=== PATIENT | female | born 1955 | race Caucasian/White ===

== ENCOUNTER 2021-02-07 10:58 | Emergency (ER) | payer OTHER, SELFPAY ==
--- NOTE | ~2021-02-07 | XR_ITS ---
EXAMINATION: XR shoulder RT min 2V DATE: 02/07/2021 11:29 INDICATION: Right shoulder pain. TECHNIQUE: 4 views of right shoulder were obtained. COMPARISON: None. FINDINGS: Bone alignment is normal. No fracture. There is mild osteoarthritis of glenohumeral joint a nd acromioclavicular joint. Osteopenia is noted. IMPRESSION: 1. Mild polyarticular osteoarthritis. Reviewed, dictated and finalized at location A.
[2021-02-07 11:07] VITALS: BP 140/71; PULSE 75; RESP 16; TEMP 36.7; O2SAT 98
--- NOTE | 2021-02-07 11:35 | ED.UPPEXIN ---
HPI - Extremity Injury (Upper) General Chief Complaint: Extremity Injury, Upper Stated Complaint: right shoulder injury Time Seen by Provider: 02/07/21 11:13 Source: patient and RN notes reviewed Mode of arrival: ambulatory Limitations: no limitations History of Present Illness HPI narrative: Patient presents today complaining of right shoulder injury. States she injured her shoulder at work on January 15 and moving heavy boxes and tables. States she does not recall an acute pain at the time, but woke up the next morning unable to move her shoulder around. She describes the pain as a severe ache and currently rates her pain 7/10. States the pain is somewhat improved at this time but not back to 100%. She has not tried any [id number] interventions prior to arrival. History of rotator cuff tear and frozen shoulder in the currently affected shoulder denies numbness or tingling in the arm or hand. She just reported the injury to her job at [employer] and was told to come in for evaluation. MD complaint: injury to: right and shoulder Related Data Home Medications Medication Instructions Recorded Confirmed No Home Medications 02/07/21 02/07/21 Allergies Allergy/AdvReac Type Severity Reaction Status Date / Time No Known Allergies Allergy Mild Unverified 07/19/05 10:33 Review of Systems Review of Systems: Narrative: CONSTITUTIONAL: Denies body aches, fever, chills, or sweats. EYES: Denies visual changes, redness, or discharge. ENT: Denies rhinorrhea, congestion, sore throat, or otalgia. CARDIOVASCULAR: Denies chest pain, palpitations, or edema. RESPIRATORY: Denies cough or dyspnea. GASTROINTESTINAL: Denies abdominal pain, nausea, vomiting, or diarrhea. GENITOURINARY: Denies dysuria or hematuria. SKIN: Denies rash, itching, or wounds. MUSCULOSKELETAL: Denies back pain, or myalgia. + Right shoulder injury NEUROLOGIC: Denies headache, numbness, tingling, or weakness. PSYCH: Denies depression or anxiety. [facility] Past Medical History Medical History (Updated 02/07/21 @ 12:11 by Ade Fiore, [employer], ) Frozen shoulder History of rotator cuff tear Interstitial cystitis Social History Social History Gender identity (if verbalized by the patient): Female Comments At time of signature, I have reviewed and agree with nursing past medical, surgical, social and family history unless otherwise noted. Please see nursing chart for further information. There is no relevant family history pertinent to the presenting complaint Exam Narrative: Exam Narrative: GENERAL: Well-appearing, well-nourished, and in no acute distress. HEAD: Normocephalic, atraumatic. EYES: EOMI. No redness or drainage. Conjunctivae normal. ENT: Mucous membranes pink and moist. NECK: Normal AROM. Supple. No lymphadenopathy. CHEST: No respiratory distress. EXTREMITIES: Right shoulder: Obvious surgical scars noted. Mild tenderness anteriorly and over surgical scar. No edema noted. No ecchymosis or erythema noted. PROM laterally is limited to 90 degrees before becomes painful. PROM anteriorly is limited to 135 degrees. Significant pain with internal and external rotation and states there is a catching sensation that is very painful with internal rotation that had to resolve itself. Distal sensation intact. Capillary refill normal. Radial pulse normal. SKIN: Warm, dry, no rash. Capillary refill normal. Normal skin turgor. NEURO: No focal deficits. Alert and oriented x3. Gait steady. PSYCH: Normal affect. No signs of depression or anxiety. Course Vital Signs Vital signs: Vital Signs Temperature 98.0 F 02/07/21 11:07 Pulse Rate 75 02/07/21 11:07 Respiratory Rate 16 02/07/21 11:07 Blood Pressure 140/71 02/07/21 11:07 Pulse Oximetry 98 02/07/21 11:07 Temperature 98.0 F 02/07/21 11:07 Pulse Rate 75 02/07/21 11:07 Respiratory Rate 16 02/07/21 11:07 Blood Pressure 140/71 02/07/21 11:07 Pulse Oximetr
== END 2021-02-07 12:15 | disposition home or self-care (01) ==
PROVIDERS: Emergency Provider Nurse Practitioner
DX: S49.91XA Unspecified injury of right shoulder and upper arm, initial encounter (principal); X50.3XXA Overexertion from repetitive movements, initial encounter
CPT/HCPCS: 73030; 99213; G0463